=== PATIENT | male | born 1990 | race Two or more races ===

== ENCOUNTER 2018-08-21 16:19 | Emergency (ER) | payer OTHER ==
--- NOTE | 2018-08-21 16:27 | PDOC ---
History of Present Illness - General Chief Complaint: Syncope/Near Syncope Stated Complaint: SYNCOPE - History of Present Illness Initial Comments: The patient is a 28M w/ no reported PMH who presents for evaluation s/p syncopal episode at PCP office during phlebotomy. Patient states he was sitting while his blood was being drawn, he was valsalvaing in order to increase the girth of his veins. He next remembers waking on the floor several seconds later. He then states while he was in the ambulance, while his IV was being placed, he did the same thing and describes feeling lightheaded at that time but did not syncopize. He denies ever having had this happen before. Denies history of any medical problems Denies any symptoms currently including ROGERS, vision changes, chest pain, SOB, abdominal pain, N/V/C/D, or recent fever/illness 08/21/18 18:37 Past History - Past Medical History Allergies/Adverse Reactions: Allergies Allergy/AdvReac Type Severity Reaction Status Date / Time No Known Allergies Allergy Verified 08/21/18 14:17 Home Medications: Ambulatory Orders Emtricitabine/Tenofovir (Tdf) [Truvada 200 mg-300 mg Tablet] 1 each PO DAILY # 30 tablet 08/21/18 Diabetes: No - Surgical History Appendectomy: Yes (2002 or 2003, [place]) - Suicide/Smoking/Psychosocial Hx Smoking History: Former smoker Hx Alcohol Use: Yes Drug/Substance Use Hx: Yes Substance Use Type: Marijuana Review of Systems - Review of Systems Able to Perform ROS?: Yes Comments:: GENERAL/CONSTITUTIONAL: No fever or chills. No weakness HEAD, EYES, EARS, NOSE AND THROAT: No change in vision. No ear pain or discharge. No sore throat CARDIOVASCULAR: No chest pain or shortness of breath RESPIRATORY: Denies cough, hemoptysis GASTROINTESTINAL: No nausea, vomiting, diarrhea or constipation GENITOURINARY: No dysuria, frequency, or change in urination MUSCULOSKELETAL: No joint or muscle swelling or pain. No neck or back pain SKIN: No rash NEUROLOGIC: No headache, vertigo, loss of consciousness, or change in strength/ sensation ENDOCRINE: No increased thirst. No abnormal weight change HEMATOLOGIC/LYMPHATIC: No anemia, easy bleeding, or history of blood clots ALLERGIC/IMMUNOLOGIC: No hives or skin allergy 08/21/18 17:07 Is the patient limited Yakut proficient: No *Physical Exam - Vital Signs Vital Signs Temp Pulse Resp BP Pulse Ox 98.9 F 76 16 106/77 98 08/21/18 16:19 08/21/18 16:19 08/21/18 16:19 08/21/18 16:19 08/21/18 18:09 08/21/18 18:37 - Physical Exam Comments: GENERAL: Awake, alert, and fully oriented, in no acute distress HEAD: No signs of trauma, normocephalic, atraumatic EYES: PERRLA, EOMI, sclera anicteric, conjunctiva clear ENT: Hearing grossly normal, nares patent, oropharynx clear without exudates. Moist mucosa LUNGS: No distress, speaks full sentences, clear to auscultation bilaterally HEART: bradycardic rate w/ regular rhythm, normal S1 and S2, no murmurs appreciated, peripheral pulses normal and equal bilaterally ABDOMEN: Soft, nontender, normoactive bowel sounds. No guarding, no rebound EXTREMITIES : Normal inspection, Normal range of motion, no edema. No clubbing or cyanosis NEUROLOGICAL: Cranial nerves II through XII grossly intact. Normal speech, normal gait, no focal sensorimotor deficits SKIN: Warm, Dry, normal turgor, no rashes or lesions noted 08/21/18 17:08 ED Treatment Course - LABORATORY CBC & Chemistry Diagram: 08/21/18 17:41 08/21/18 17:41 Medical Decision Making - Medical Decision Making The patient is a 28M w/ no reported PMH who presents for evaluation of syncopal episode during phlebotomy and subsequent presyncopal episode during IV placement by EMS Likely vaso-vagal syncope Considered but H&P not consistent w/ PE, dysrhythmia, lyte abn, NM, stroke, conduction abn ED Course CMP, CBC, Trop I ECG 08/21/18 17:08 ECG sig for sinus zachary w/ evidence of benign early repolarization -questionable epislon wave in V3, will obtain trop I and lytes No anemia No leukocytosis Plan for D/C if labs neg 08/21/18 18:34 Labs pending I have transferred care of the patient to Dr. Glover and discussed the clinical presentation, work-up and ED course thus far. 08/21/18 18:57 *DC/Admit/Observation/Transfer Diagnosis at time of Disposition: Syncope Qualifiers: Syncope type: vasovagal syncope Qualified Code(s): R55 - Syncope and collapse - Discharge Dispostion Disposition: HOME Condition at time of disposition: Stable Decision to Admit order: No - Referrals Referrals: Catherine Peraza NP [Nurse Practitioner] - [facility] [place] [facility] [place]] - Patient Instructions Printed Discharge Instructions: DI for Syncope in Adults (Fainting) Additional Instructions: You were seen in the Emergency Department today for evaluation of syncope ( feinting). Please review the handout provided at discharge. Maintain your follow up with your primary care provider. Return to the Emergency Department if you develop fevers/chills, ROGERS, vision changes, chest pain, trouble breathing, confusion, lethargy, or any new/ concerning symptoms. - Post Discharge Activity
[2018-08-21 17:14] VITALS: BP 106/77; PULSE 76; TEMP 98.9; BMI 22.2
--- NOTE | 2018-08-21 17:45 | PDOC ---
Attending Attestation - Resident Resident Name: Fabricio Jeffrey - ED Attending Attestation I have performed the following: I have examined & evaluated the patient, The case was reviewed & discussed with the resident, I agree w/resident's findings & plan, Exceptions are as noted - HPI HPI: 08/21/18 17:30 28 M with no PMH presents to ED with syncopal episode. Pt was at PMD getting routine blood draws when he fainted. He states that he was getting several tubes of blood drawn because he is preparing to start PrEP. Pt states he was bearing down to help fill the tubes faster. After this, he became lightheaded and the next thing he remembers is waking up on the floor. Pt was seated during blood draw and fell out of his chair. Pt states that when EMS arrived, they started an IV. During this, he also beared down to help the medics. Pt states this made him lightheaded but he did not syncopize. Pt currently denies any complaints. Denies ever having CP/SOB/palpitations. No FH of cardiac disease or arrhythmia. - Physicial Exam PE: 08/21/18 17:45 "GENERAL: Awake, alert, and fully oriented, in no acute distress. HEAD: No signs of trauma EYES: PERRLA, EOMI, sclera anicteric, conjunctiva clear ENT: Auricles normal inspection, hearing grossly normal, nares patent, oropharynx clear without exudates. Moist mucosa NECK: Nontender, no stepoffs, Normal ROM, supple, no lymphadenopathy, JVD, or masses LUNGS: Breath sounds equal, clear to auscultation bilaterally. No wheezes, and no crackles HEART: Regular rate and rhythm, normal S1 and S2, no murmurs, rubs or gallops ABDOMEN: Soft, nontender, normoactive bowel sounds. No guarding, no rebound. No masses EXTREMITIES: Normal range of motion, no edema. No clubbing or cyanosis. No cords, erythema, or tenderness NEUROLOGICAL: Cranial nerves II through XII intact. 5/5 strength and sensation in all extremities, Normal speech, normal gait, normal cerebellar function SKIN: Warm, Dry, normal turgor, no rashes or lesions noted. - Medical Decision Making 08/21/18 17:45 28 M with syncope, likely vasovagal in context of blood draw and valsalva maneuver. Pt with no complaints at this time. Vitals stable. EKG normal. No clinical signs of DVT. - Labs - IVF - Reassess 08/21/18 19:25 Labs wnl Pt reassessed - continues to feel well with no recurrent syncopal episodes. Will DC with cards f/u Pt is well appearing, with normal vitals. Clinically stable for DC at this time. I discussed the physical exam findings, ancillary test results and final diagnoses with the patient. I answered all of the patient's questions. The patient was satisfied with the care received and felt comfortable with the discharge plan and treatment plan. The patient agrees to follow up with the primary care physician within 24-72 hours.
[2018-08-21 17:57] LABS: HEMATOCRIT 42.3 % (35.4-49); RDW 13.1 % (11.9-15.9)
[2018-08-21 17:59] LABS: HEMOGLOBIN 14.5 GM/dL (11.7-16.9); MCH 28.7 pg (25.7-33.7); MCHC 34.2 g/dl (32.0-35.9); MEAN CELL VOLUME 83.8 fl (80-96); MEAN PLT VOLUME 8.4 fl (7.5-11.1); PLATELET COUNT 250 K/MM3 (134-434); RBC 5.05 M/mm3 (4.00-5.60); WHITE BLOOD COUNT 5.5 K/mm3 (4.0-10.0)
[2018-08-21 19:04] LABS: ALBUMIN 3.9 g/dl (3.4-5.0); ALK PHOS 67 U/L (45-117); ANION GAP 6 MMOL/L (8-16); BILIRUBIN,TOTAL 0.4 mg/dL (0.2-1); BLOOD UREA NITROGEN 12 mg/dL (7-18); CALCIUM 8.4 mg/dL (8.5-10.1); CHLORIDE 105 mmol/L (98-107); CO2 28 mmol/L (21-32); CREATININE 1.1 mg/dL (0.55-1.3); GLUCOSE,RANDOM 78 mg/dL (74-106); POTASSIUM 4.3 mmol/L (3.5-5.1); SGOT/AST 21 U/L (15-37); SGPT/ALT 33 U/L (13-61); SODIUM 139 mmol/L (136-145); TOT PROT 7.2 g/dl (6.4-8.2)
--- NOTE | 2018-08-21 19:26 | PDOC ---
*Physical Exam - Vital Signs Last Vital Signs Temp Pulse Resp BP Pulse Ox 98.9 F 76 16 106/77 98 08/21/18 16:19 08/21/18 16:19 08/21/18 16:19 08/21/18 16:19 08/21/18 18:09 - Physical Exam Comments: 08/21/18 19:25 Received sign out from Dr. Jeffrey. ED Treatment Course - LABORATORY CBC & Chemistry Diagram: 08/21/18 17:41 08/21/18 17:41 - ADDITIONAL ORDERS Additional order review: Laboratory Results 08/21/18 17:41 Sodium 139 Potassium 4.3 Chloride 105 Carbon Dioxide 28 Anion Gap 6 L BUN 12 Creatinine 1.1 Creat Clearance w eGFR > 60 Random Glucose 78 Calcium 8.4 L Total Bilirubin 0.4 AST 21 ALT 33 Alkaline Phosphatase 67 Troponin I < 0.02 Total Protein 7.2 Albumin 3.9 08/21/18 17:41 RBC 5.05 MCV 83.8 MCHC 34.2 RDW 13.1 MPV 8.4 Medical Decision Making - Medical Decision Making 08/21/18 23:45 28 yo M presenting with syncope to the emergency department. work up; labs were within normal limits. trops were negative. will be discharged with cards follow up. patient agrees to plan and accepts it. Laboratory Tests 08/21/18 08/21/18 17:41 17:41 WBC 5.5 RBC 5.05 Hgb 14.5 Hct 42.3 MCV 83.8 MCH 28.7 MCHC 34.2 RDW 13.1 Plt Count 250 MPV 8.4 Sodium 139 Potassium 4.3 Chloride 105 Carbon Dioxide 28 Anion Gap 6 L BUN 12 Creatinine 1.1 Creat Clearance w eGFR > 60 Random Glucose 78 Calcium 8.4 L Total Bilirubin 0.4 AST 21 ALT 33 Alkaline Phosphatase 67 Troponin I < 0.02 Total Protein 7.2 Albumin 3.9 I discussed the physical exam findings, ancillary test results, and final diagnoses with the patient. I answered all of the patients questions to their satisfaction. The patient was satisfied with the care received and felt comfortable with the discussed discharge and treatment plan and accepted it. They agreed to follow up with their primary medical physical physician within 24 -72 hours after discharge for follow up care and management. Dispo: Discharge *DC/Admit/Observation/Transfer Diagnosis at time of Disposition: Syncope Qualifiers: Syncope type: vasovagal syncope Qualified Code(s): R55 - Syncope and collapse - Discharge Dispostion Disposition: HOME Condition at time of disposition: Stable - Referrals Referrals: [facility] – [place] [facility] [place] [Provider Group] Catherine Peraza NP [Primary Care Provider] - John Cerda MD [Staff Physician] - - Patient Instructions Printed Discharge Instructions: DI for Syncope in Adults (Fainting) Additional Instructions: You were seen in the Emergency Department today for evaluation of syncope ( feinting). Please review the handout provided at discharge. Maintain your follow up with your primary care provider. Return to the Emergency Department if you develop fevers/chills, ROGERS, vision changes, chest pain, trouble breathing, confusion, lethargy, or any new/ concerning symptoms. You may need to have a holter monitor. Please follow up with the referred paint mixer machine within 72 hours after discharge and follow up with your primary medical doctor within 72 hours after discharge. Thank you. - Post Discharge Activity
--- NOTE | 2018-08-25 12:32 | EKG ---
Test Reason : Blood Pressure : / mmHG Vent. Rate : 051 BPM Atrial Rate : 051 BPM P-R Int : 128 ms QRS Dur : 090 ms QT Int : 414 ms P-R-T Axes : 049 065 056 degrees QTc Int : 381 ms SINUS BRADYCARDIA EARLY REPOLARIZATION OTHERWISE NORMAL ECG NO PREVIOUS ECGS AVAILABLE Confirmed by EVERT FITZPTARICK MD ([id number]) on 08/25/2018 12:31:56 PM Referred By: Confirmed By:EVERT FITZPATRICK MD
== END 2018-08-21 19:38 | disposition home or self-care (01) ==
LOC: JER 16:19
DX: R55 Syncope and collapse (principal)
CPT/HCPCS: 36415; 80053; 84484; 85027; 93005; 93010; 99282-25

== ENCOUNTER 2022-04-16 14:08 | Emergency (ER) | payer OTHER ==
[2022-04-16 14:42] VITALS: BP 106/57; PULSE 72; RESP 16; TEMP 98.3; BMI 24.3
[2022-04-16] MEDS ORDERED: DIPHTH,PERTUSS(ACELL),TET 0.5 ML DISP.SYRIN IM ONE ×2 (15:21→15:44)
== END 2022-04-16 15:58 | disposition home or self-care (01) ==
LOC: FER 14:08
PROC: 0HQGXZZ Repair Left Hand Skin, External Approach (ICD-10-PCS; principal; 2022-04-16)
PROC: 3E0234Z Introduction of Serum, Toxoid and Vaccine into Muscle, Percutaneous Approach (ICD-10-PCS; 2022-04-16)
DX: S61.215A Laceration without foreign body of left ring finger without damage to nail, initial encounter (principal); W26.0XXA Contact with knife, initial encounter
CPT/HCPCS: 12001-25; 87209; 90471; 90715; 99284-25